=== PATIENT | female | born 1970 | race African-American/Black ===

== ENCOUNTER 2021-07-15 10:24 | Emergency (ER) | payer OTHER ==
[2021-07-15 11:10] LABS: #Eosinphils 0.1 10x3/uL (0.0-0.5); #Monocytes 0.3 10x3/uL (0.0-1.1); #Neutrophils 1.7 10x3/uL (1.5-8.4); %Eosinophils 3.2 % (0.0-6.0); %Lymphocytes 31.4 % (18.0-47.0); %Monocytes 9.7 % (0.0-10.0); %Neutrophils 55.4 % (40.0-75.0); Bilirubin Neg (Negative); Blood, Urine Negative (Negative); Clarity Clear (Clear); Glucose, Urine (Dipstick) Normal (Negative); Hemoglobin 13.2 g/dL (12.0-15.5); Ketone, Urine Negative (Negative); Leukocyte Negative (Negative); Mean Corpuscular HGB CONC 32.9 g/dL (32.0-36.0); Mean Corpuscular Hemoglobin 31.5 pg (27.0-33.0); Mean Corpuscular Volume 95.7 fl (81.6-98.3); Mean Platelet Volume 10.8 fl (7.4-10.4); Nitrite Negative (Negative); Platelet Count 207 10x3/uL (150-450); Protein, Urine (Dipstick) Negative (Neg-Trace); RBC Distribution Width 13.3 % (11.5-14.5); Red Blood Cell (RBC) Count 4.19 10x6/uL (3.90-5.03); Urobilinogen Normal mg/dL (Less than 2); White Blood Cell (WBC) Count 3.1 10x3/uL (3.5-10.5); pH, Urine 6.5 (5.0-9.0)
[2021-07-15] MEDS ORDERED: Ondansetron PF 4 MG/2 ML Vial ONE (11:16)
[2021-07-15] MEDS ORDERED: Fentanyl 100 MCG/2 ML VIAL ONE (11:16)
[2021-07-15 11:29] LABS: BHCG - Serum Negative (NEGATIVE); Pregs Control Background? CLEAR/WHITE (CLR/WHITE); Pregs Control Bar Appear? YES (CONTROL BAR)
[2021-07-15 11:42] LABS: ALT (SGPT) 15 U/L (8-55); AST (SGOT) 22 U/L (5-34); Albumin 4.5 g/dL (3.5-5.0); Alkaline Phosphatase 84 U/L (40-110); Anion Gap 12 mmol/L (10-20); BUN (Urea Nitrogen) 12 mg/dL (7.0-18.7); Bilirubin, Total 0.5 mg/dL (0.2-1.2); Calc. Creatinine Clearance 0 mL/min (70-130); Calcium 9.6 mg/dL (7.8-10.44); Carbon Dioxide 26 mmol/L (22-29); Chloride 104 mmol/L (98-107); Globulin 3.3 g/dL (2.4-3.5); Glucose 84 mg/dL (70-105); Lipase 8 U/L (8-78); Potassium 4.2 mmol/L (3.5-5.1); Protein, Total 7.8 g/dL (6.0-8.3); Sodium 138 mmol/L (136-145)
== END 2021-07-15 15:16 | disposition home or self-care (01) ==
LOC: CSHERS 10:24
DX: K50.00 Crohn's disease of small intestine without complications (principal); D72.819 Decreased white blood cell count, unspecified; G43.909 Migraine, unspecified, not intractable, without status migrainosus; I10 Essential (primary) hypertension; Z79.899 Other long term (current) drug therapy
CPT/HCPCS: 74177; 80053; 81003; 83690; 84703; 85025; 96374; 96375; J2405; J3010